=== PATIENT | female | born 1970 | race Asian ===

== ENCOUNTER 2020-08-30 06:00 | Day surgery (SDC) | payer OTHER ==
[~2020-08-30 06:00] MED LIST: IBUP-2697 PO
[2020-08-30] MEDS ORDERED: SODIUM CHLORIDE 0.9% 1000ML 1,000 ML IV ONE (06:13)
[2020-08-30 08:06] VITALS: BP 123/79
[2020-08-30] MEDS ORDERED: MIDAZOLAM HCL 1 MG/ML 2ML VIAL ONE (08:38)
[2020-08-30] MEDS ORDERED: PROPOFOL 10 MG/ML 20ML VIAL IV ONE (08:38)
[2020-08-30 09:00] VITALS: BP 136/87
[2020-08-30 09:05] VITALS: BP 126/75
[2020-08-30 09:09] VITALS: BP 120/71
[2020-08-30 09:15] VITALS: BP 135/76
[2020-08-30 09:20] VITALS: BP 141/82
== END 2020-08-30 09:41 | disposition home or self-care (01) ==
LOC: ENDO 06:00 → DAH 06:00 → ENDO 09:41
PROVIDERS: ATTEND Internal Medicine
DX: Z12.11 Encounter for screening for malignant neoplasm of colon (principal); Z80.0 Family history of malignant neoplasm of digestive organs; K63.5 Polyp of colon; Z90.710 Acquired absence of both cervix and uterus
CPT/HCPCS: 45385; A4215; A4221; A4222; A4223; A4606; A4620; A4657; A4663; C9803; J2250; J2704; J7030; U0003